=== PATIENT | male | born 1985 | race Caucasian/White ===

== ENCOUNTER → 2016-07-28 | Outpatient (REF) | LOC: M LAB 15:36 | PROVIDERS: ATTEND Nurse Practitioner Adult Health | DX: Z02.1 Encounter for pre-employment examination (principal) ==

== ENCOUNTER 2016-09-09 19:09 | Inpatient (IN) | payer OTHER ==
[~2016-09-09] VITALS: Ht 172.7 cm; Wt 126.6 kg
[2016-09-09 20:13] LABS: MEAN CORPUSCULAR HGB CONC 34.2 g/dl (32.0-36.5); MEAN CORPUSCULAR VOLUME 90.6 fl (80.0-96.0); RED CELL DISTRIBUTION WIDTH 12.4 % (11.5-14.5); WHITE BLOOD COUNT 10.1 K/mm3 (4.0-10.0)
[2016-09-09] MEDS ORDERED: SPIR100T PO (20:20)
[2016-09-09] MEDS ORDERED: iron PO (20:20)
[2016-09-09] MEDS ORDERED: lisinopril PO (20:20)
[2016-09-09] MEDS ORDERED: VIVE0.1D TD (20:20)
[2016-09-09] MEDS ORDERED: MULT1CHW39 PO (20:20)
[2016-09-09] MEDS ORDERED: calcium PO (20:20)
[2016-09-09] MEDS ORDERED: LEVO25TA5 PO (20:20)
[2016-09-09 20:41] LABS: METHADONE URINE NEGATIVE (NEGATIVE)
[2016-09-09 21:13] LABS: ALBUMIN/GLOBULIN RATIO 1.11 (1.00-1.93); ALKALINE PHOSPHATASE 81 U/L (45-117); ALT/SGPT 18 U/L (12-78); ANION GAP 8 MEQ/L (8-16); AST/SGOT 14 U/L (15-37); BILIRUBIN,DIRECT 0.1 MG/DL (0.0-0.2); BILIRUBIN,TOTAL 0.4 MG/DL (0.2-1.0); BLOOD UREA NITROGEN 9 MG/DL (7-18); CALCIUM LEVEL 8.5 MG/DL (8.5-10.1); CARBON DIOXIDE LEVEL 29 MEQ/L (21-32); CHLORIDE LEVEL 102 MEQ/L (98-107); CREATININE FOR GFR 0.77 MG/DL (0.70-1.30); GLOMERULAR FILTRATION RATE > 60.0 (>60); GLUCOSE, FASTING 101 MG/DL (70-105); POTASSIUM SERUM 3.8 MEQ/L (3.5-5.1); SODIUM LEVEL 139 MEQ/L (136-145); TOTAL PROTEIN 7.6 GM/DL (6.4-8.2)
[2016-09-10] MEDS ORDERED: ACETAMINOPHEN TAB 650MG DOSE (2X325MG) PO PRN (07:00)
[2016-09-10] MEDS ORDERED: LORazepam 1 MG TAB PO PRN (07:00)
[2016-09-10] MEDS ORDERED: MAALOX 30 ML SUSP *UDC PO PRN (07:00)
[2016-09-10] MEDS ORDERED: MOM 30ML SUSPENSION UDC PO PRN (07:00)
[2016-09-10] MEDS ORDERED: traZODone 50 MG TAB PO PRN (07:00)
[2016-09-10] MEDS: ESCITALOPRAM OXALATE 10 MG TAB (LEXAPRO) PO SCH (08:31)
[2016-09-10] MEDS ORDERED: CALC600T10 PO (09:38)
[2016-09-10] MEDS ORDERED: FERR325T3 PO (09:38)
[2016-09-10] MEDS ORDERED: VITMTA PO (09:38)
[2016-09-10] MEDS ORDERED: LISI10TA4 PO (09:39)
[2016-09-10 09:47] VITALS: BP 149/101
--- NOTE | 2016-09-10 10:18 | HPEPDOC ---
Medical History and Physical Date of Admission September 10, 2016 at 06:51 History and Physical PCP: Chasity BRINK ATTENDING: Dr. Carlos Mcrae HPI: 30yoM admitted to [facility] for MDD, being medically examined today. No acute medical complaints today. Denies any fevers, chills, weakness, fatigue, BENTLEY, CP, SOB, cough, palpitations, abdominal pain, N/V/D or changes in bowel or bladder habits. PMHx: Depression Anxiety H/O SI Gender Identity Disorder. HT as per Endocrinology- Adele Villeda. . Transitioning male to female. Obesity BMI 42.6 Wt loss 170# with bariatric surgery per pt. HTN. H/O memory loss, managed as per Neurology. hypothyroid AXEL H/O HLD H/O IFG PSHX: gastric bypass 2014 SOCHX: Resides in: lives with mother Marital Status: single Kids: none Employment: unemployed Tobacco use: denies ETOH: denies Illicit Drugs: Denies IV Drug Use: Denies Tattoos done unprofessionally: Denies FAMHX: Mother: Alive, HTN Father: unknown Siblings None Children: none Unexpected deaths due to medical reasons: None. ROS: As noted in HPI, otherwise 11pt ROS of systems reviewed and remarkable only for PE: GEN: 30yoM, appears stated age. Well-nourished, well developed. No acute distress. Alert and oriented x 3. Pleasant, interactive. HEENT: Normocephalic, atraumatic. Pupils are equal, round, and reactive to light. Extraocular movements are intact. No nystagmus appreciated. Sclera are nonicteric. Conjunctiva without injection. Nose midline. Nasal turbinates without bogginess. EACs both patent BL. TMs both visualized and jimenes with good cone of light, no bulging or erythema. No facial asymmetry. Moist mucous membranes. Dentition fair. Pharynx pink and moist, no cobblestoning. Neck supple , trachea midline. No lymphadenopathy or thyromegaly appreciated. CHEST: Regular rate and rhythm, +S1, +S2 LUNGS: Clear to auscultation bilaterally. No wheezes, rales, or rhonchi. Breathing appears symmetric and easy. Patient is speaking in full sentences. No accessory muscle use. ABD: Round, soft, non-tender, non-distended. +Bowel sounds throughout. No rebound or guarding. No costovertebral angle tenderness. EXT: Pulses 2+ bilaterally dorsalis pedis and radial. No lower extremity edema appreciated. SKIN: [employer], dry, warm. Capillary refill <2sec. No rashes. NEURO: Alert and oriented x 3. Cranial nerves III-XII are intact. No focal deficits appreciated. EKG: pending A&P: 30yoM admitted to [facility] for MDD 1. Psych. Plan per Psychiatry. Obtain baseline EKG to assure the safety of psychiatric medications as they can prolong the QT interval. 2. Gender Identity disorder. Following with Endocrine for HT. Continue with outpt regimen. 3. Obesity/H/O Gastric bypass procedure. BMI 42.6. Cont with diet. Cont Ca and Fe supplements as per outpt regimen. 4. Follow up with PCP on discharge. 5. HTN. Continue with Lisinopril 10mg daily. 6. AXEL. Off CPAP since wt loss per pt. 7. HLD. Diet controlled. Lipid profile 03/19 [id number]. 8. IFG. FBS 101. 9. Hypothyroid. Continue with supplement. TSH WNL. 10. Staff member present throughout exam, Teresa FLETCHER. . Vital Signs Vital Signs Date Time Temp Pulse Resp B/P (MAP) Pulse Ox O2 Delivery O2 Flow Rate FiO2 09/10/16 09:16 98.3 96 18 148/88 (108) 97 Room Air Laboratory Data Labs 24H Laboratory Tests 2 09/09/16 19:54: Urine Amphetamines Screen NEGATIVE, Urine Benzodiazepines Screen NEGATIVE, Urine Opiates Screen NEGATIVE, Urine Methadone Screen NEGATIVE, Urine Barbiturates Screen NEGATIVE, Urine Phencyclidine Screen NEGATIVE, Urine Cocaine Metabolite Screen NEGATIVE, Urine Cannabinoids Screen NEGATIVE 09/09/16 20:01: Anion Gap 8, Glomerular Filtration Rate > 60.0, Calcium Level 8.5, Aspartate Amino Transf (AST/SGOT) 14L, Alanine Aminotransferase (ALT/SGPT) 18, Alkaline Phosphatase 81, Total Bilirubin 0.4, Direct Bilirubin 0.1, Total Protein 7.6, Albumin 4.0, Albumin/Globulin Ratio 1.11, Thyroid Stimulating Hormone (TSH) 2.410, Salicylates Level < 1.7L, Acetaminophen Level < 2.0L, Ethyl Alcohol Level < 0.003 CBC/BMP Item Value Date Time Triglycerides Level 77 MG/DL 03/24/16 1448 Cholesterol Level 191 MG/DL 03/24/16 1448 LDL Cholesterol 109.6 MG/DL H 03/24/16 1448 Non-HDL Cholesterol (LDL + VLDL) 125 MG/DL 03/24/16 1448 HDL Cholesterol 66 MG/DL 03/24/16 1448 Cholesterol/HDL Ratio 2.893 03/24/16 1448 Laboratory Tests 09/09/16 20:01 Red Blood Count 5.19, Mean Corpuscular Volume 90.6, Mean Corpuscular Hemoglobin 31.0, Mean Corpuscular Hemoglobin Concent 34.2, Red Cell Distribution Width 12.4 Home Medications Scheduled Calcium (Calcium) 600 Mg Tab, 600 MG PO BID Estradiol (Vivelle-Dot) 0.1 Mg/24 Hr Dis, 2 PATCH TD 2XWK THURSDAY AND THURSDAY Ferrous Sulfate (Ferrous Sulfate) 325 Mg Tab, 325 MG PO DAILY Levothyroxine Sodium (Synthroid) 25 Mcg Tab, 37.5 MCG PO DAILY Lisinopril (Lisinopril) 10 Mg Tab, 10 MG PO DAILY Multivitamins *[facility] STOCKED* (Thera M Plus *[facility] STOCKED*) 1 Tab Tab, 1 TAB PO DAILY Spironolactone (Spironolactone) 100 Mg Tab, 200 MG PO DAILY Allergies Coded Allergies: No Known Allergies (Unverified , 09/09/16) Sherine Penny September 10, 2016 10:18
[2016-09-10] MEDS: SPIRONOLACTONE 50 MG TAB PO SCH (12:42)
[2016-09-10] MEDS: FERROUS SULFATE 325MG TAB PO SCH (12:42)
[2016-09-10] MEDS: MULTIVITAMINS/MINERALS THERAP 1 TAB PO SCH (12:44)
[2016-09-10] MEDS: LISINOPRIL 10 MG TAB PO SCH (12:44)
[2016-09-10] MEDS: LEVOTHYROXINE 0.025 MG TAB (25 MCG) PO SCH (12:45)
[2016-09-10 18:00] VITALS: BP 139/87
[2016-09-11] MEDS: LEVOTHYROXINE 0.025 MG TAB (25 MCG) PO SCH (06:01)
[2016-09-11 06:33] VITALS: BP 130/78
[2016-09-11] MEDS: FERROUS SULFATE 325MG TAB PO SCH (09:20)
[2016-09-11] MEDS: MULTIVITAMINS/MINERALS THERAP 1 TAB PO SCH (09:21)
[2016-09-11] MEDS: ESCITALOPRAM OXALATE 10 MG TAB (LEXAPRO) PO SCH (09:23)
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
[2016-09-11] MEDS: LISINOPRIL 10 MG TAB PO SCH (09:25)
[2016-09-11] MEDS: SPIRONOLACTONE 50 MG TAB PO SCH (09:26)
[2016-09-11 12:38] VITALS: BP 141/95
[2016-09-11 18:00] VITALS: BP 120/63
--- NOTE | 2016-09-11 19:56 | ECGEPIP ---
Stationary ECG Study [facility] Test Date: 2016-09-10 Pat Name: MARGI CAPRENTER Department: Room: [place] [address] Gender: M Leave Specialist: CARY : 1985 Requested By: Sherine Penny Order Number: [id number] Reading MD: Delilah Mcmillan Measurements Intervals [place] Rate: 74 P: 21 MD: 149 QRS: 75 QRSD: 103 T: 43 QT: 400 QTc: 445 Interpretive Statements SINUS RHYTHM NO PRIOR Electronically Signed On 09-11-2016 19:56:25 EDT by Delilah Mcmillan
[2016-09-11] MEDS: ESTRADIOL TD SCH (21:00)
[2016-09-12] MEDS: LEVOTHYROXINE 0.025 MG TAB (25 MCG) PO SCH (06:01)
[2016-09-12 06:12] VITALS: BP 132/67
[2016-09-12] MEDS: FERROUS SULFATE 325MG TAB PO SCH (09:27)
[2016-09-12] MEDS: ESCITALOPRAM OXALATE 10 MG TAB (LEXAPRO) PO SCH (09:27)
[2016-09-12] MEDS: LISINOPRIL 10 MG TAB PO SCH (09:27)
[2016-09-12] MEDS: SPIRONOLACTONE 50 MG TAB PO SCH (09:28)
[2016-09-12] MEDS: MULTIVITAMINS/MINERALS THERAP 1 TAB PO SCH (09:28)
[2016-09-12 18:00] VITALS: BP 134/71
--- NOTE | 2016-09-12 19:05 | MHIPNPDOC ---
[facility] Progress Note Progress Note DATE OF SERVICE: 09/12/16 HISTORY OF THE PRESENT ILLNESS: Patient is a 30-year-old transgender individual who is transitioning from male to female and prefers to be called "Radha," who was brought to [facility] by police after being reported by an online chat member that patient was making statements online of wanting to kill herself by jumping out her [address] apartment window. Fig Washer met with patient today to assess treatment progress on inpatient unit. Patient denies symptoms of anxiety , reports 3/10 depression, denies suicidal and homicidal ideation, denies audiovisual hallucinations, denies urge to engage in self-injurious behavior. Patient states to automobile and property underwriter, "I'm feeling a little better today, my mother visited last night and the visit went well, I feel like she is supportive and that's a big relief." Patient indicates she continues to experience guilt related to not telling her mother that her symptoms of depression were increasing and that she was experiencing suicidal ideation, informs automobile and property underwriter she feels she will be able to communicate her feelings to her mother better in the future. Patient indicates Lexapro is helping to reduce symptoms of anxiety and depression and denies medication side effects. Patient reports improvement in energy level, describes concentration and focus as "okay," and indicates appetite is stable. Patient denies symptoms of physical pain, denies experiencing new episodes of dizziness, and presents with no signs of acute distress at time of interaction. VITALS: See below NEW TEST RESULTS: No new results PAST MEDICAL/SURGICAL HISTORY: Hypothyroidism, obesity with weight loss of 170 pounds post-bariatric surgery in 2014, hypertension, history of memory loss which is managed by neurology, AXEL and was using CPAP, states no longer needs due to weight loss, history of hyperlipidemia, history of IFG, patient is on hormone therapy and is followed by endocrinology, is transitioning from male to female. Patient denies history of seizure or head injury. Labs on admission indicated elevated WBCs and low AST UDS negative 09/11/16 EKG sinus rhythm CURRENT MEDICATIONS: See below MENTAL STATUS EXAMINATION: General appearance: Patient is a 30-year-old transgender female who is pleasant and cooperative, engageable, makes improved eye contact, appears less disheveled today, is dressed in hospital clothing, and ambulates with steady gait, appears stated age. Speech: Is of normal rate, rhythm, low volume, monotone, coherent Thought processes: Linear, logical, goal-directed Thought content: Logical, rational, no tangentiality noted, no paranoia Abstract reasoning and computation: Appears intact Description of associations: Intact Description of abnormal or psychotic thoughts: Patient denies current suicidal or homicidal ideation, denies auditory or visual hallucinations, does not appear to be responding to internal stimuli, does not endorse bizarre or paranoid ideation, denies preoccupation with violence or obsessions Judgment: Limited, some improvement during treatment Insight: Fair, some improvement during treatment ORientation: A and O 3 Recent and remote memory: Appear intact, however, reportedly has a history of memory loss, none noted at time of assessment Attention span and concentration: Adequate Fund of knowledge: Adequate Mood: "I don't know, but I might be on the upswing." Patient appears anxious and depressed, no mood lability noted Affect: Blunted but brightens at times, congruent with mood. DIAGNOSES: Major depressive disorder, recurrent, moderate, gender dysphoria ASSESSMENT: Patient continues to slowly adjust to unit, remains isolative and withdrawn at times, at other times visible, has started attending some groups. Patient was encouraged to participate more in unit programming. One-on-one patient is easily engaged, pleasant and cooperative and presents with no behavior management challenges. Patient continues to take Lexapro which she indicates is helping to reduce symptoms of anxiety and depression and she denies medication side effects. Patient remains aware she has trazodone available to her for sleep and PRN anxiolytic if needed. Patient will remain on vitals QID and fall precautions for now in order to continue to monitor for new episodes of dizziness. Patient denies suicidal and homicidal ideation and verbalizes awareness of how to access supportive services on the unit if needed. Will continue to monitor patient's response to medications, monitor for side effects, and will evaluate patient's safety, resolution of suicidal ideation, and discharge readiness. Patient indicates today that when she is prepared for discharge she will probably return to her home, as opposed to her mother's home, and is interested in participating in outpatient psychotherapy and [facility] services [email or web address]. Patient also participates in online transgender support group and attends a face-to- face transgender support group through [email or web address] which she intends to resume. Patient is aware she will be meeting with [facility] director of housing and energy services on Thursday to initiate outpatient case management services. MANAGEMENT PLAN: Continue Lexapro 20 mg po q am Maintain safety precautions Patient to attend groups and participate in unit programming to develop coping strategies Engage patient in discharge planning process to ensure safe discharge planning when appropriate Patient to follow up with PCM, neurology, and endocrinology upon discharge TIME SPENT: 35 minutes Vital Signs Vital Signs Date Time Temp Pulse Resp B/P (MAP) Pulse Ox O2 Delivery O2 Flow Rate FiO2 09/12/16 09:27 132/67 09/12/16 06:12 99.0 76 20 09/10/16 18:00 Room Air 09/10/16 09:47 100 Current Medications Current Medications Acetaminophen (Tylenol Tab) 650 mg Q6HP PRN PO HEADACHE or DISCOMFORT; Start at 07:00; Stop 10/10/16 at 06:59 Al Hydrox/Mg Hydrox/Simethicone (Mylanta) 30 ml Q4HP PRN PO HEARTBURN/ INDIGESTION; Start 09/10/16 at 07:00; Stop 10/10/16 at 06:59 Escitalopram Oxalate (Lexapro) 20 mg DAILY PO Last administered on 09/12/16 09 :27; Start 09/10/16 at 09:00; Stop 10/10/16 at 08:59 Ferrous Sulfate (Ferrous Sulfate) 325 mg DAILY PO Last administered on 09:27; Start 09/10/16 at 09:00; Stop 10/10/16 at 08:59 Home Med (Med Rec Complete!) ASDIRECTED XX ; Start 09/10/16 at 09:45; Stop 02/17 at 09:45; Status DC Levothyroxine Sodium (Synthroid) 0.0375 mg DAILY@0600 PO Last administered on 06:01; Start 09/10/16 at 06:00; Stop 10/10/16 at 05:59 Lisinopril (Prinivil) 10 mg DAILY PO Last administered on 09/12/16 09:27; Start 09/10/16 at 09:00; Stop 10/10/16 at 08:59 Lorazepam (Ativan) 1 mg TIDP PRN PO Anxiety; Start 09/10/16 at 07:00; Stop at 06:59 Magnesium Hydroxide (Milk Of Magnesia) 30 ml DAILYPRN PRN PO CONSTIPATION; Start 09/10/16 at 07:00; Stop 10/10/16 at 06:59 Miscellaneous (Unresolved Patient Own Med Order) SEE LABEL COMMENTS UNRESOLVED XX ; Start 09/10/16 at 00:01; Stop 09/11/16 at 19:58; Status DC Multivitamins (Theragram-M) 1 tab DAILY PO Last administered on 09/12/16 09:28 ; Start 09/10/16 at 09:00; Stop 10/10/16 at 08:59 Patient Own Medication (Patient'S Own Med) 2 ea MoTh@2100 TD Last administered on 09/11/16 21:00; Start 09/11/16 at 21:00; Stop 10/11/16 at 20:59 Spironolactone (Aldactone) 200 mg DAILY PO Last administered on 09/12/16 09:28 ; Start 09/10/16 at 09:00; Stop 10/10/16 at 08:59 Trazodone HCl (Desyrel) 50 mg QHSP PRN PO INSOMNIA; Start 09/10/16 at 07:00; Stop 10/10/16 at 06:59 Allergies Coded Allergies: No Known Allergies (Unverified , 09/09/16) Khloe Gonsales September 12, 2016 19:05
[2016-09-13] MEDS: LEVOTHYROXINE 0.025 MG TAB (25 MCG) PO SCH (06:40)
[2016-09-13 06:41] VITALS: BP 124/71
[2016-09-13] MEDS: MULTIVITAMINS/MINERALS THERAP 1 TAB PO SCH (09:10)
[2016-09-13] MEDS: SPIRONOLACTONE 50 MG TAB PO SCH (09:10)
[2016-09-13] MEDS: FERROUS SULFATE 325MG TAB PO SCH (09:10)
[2016-09-13] MEDS: ESCITALOPRAM OXALATE 10 MG TAB (LEXAPRO) PO SCH (09:10)
[2016-09-13] MEDS: LISINOPRIL 10 MG TAB PO SCH (09:10)
[2016-09-13 12:00] VITALS: BP 146/88
[2016-09-13 18:00] VITALS: BP 128/65
[2016-09-14] MEDS: LEVOTHYROXINE 0.025 MG TAB (25 MCG) PO SCH (06:11)
[2016-09-14 06:24] VITALS: BP 155/65
[2016-09-14] MEDS: SPIRONOLACTONE 50 MG TAB PO SCH (09:18)
[2016-09-14] MEDS: MULTIVITAMINS/MINERALS THERAP 1 TAB PO SCH (09:18)
[2016-09-14] MEDS: ESCITALOPRAM OXALATE 10 MG TAB (LEXAPRO) PO SCH (09:18)
[2016-09-14] MEDS: LISINOPRIL 10 MG TAB PO SCH (09:19)
[2016-09-14] MEDS: FERROUS SULFATE 325MG TAB PO SCH (09:19)
--- NOTE | 2016-09-14 12:36 | IPN ---
DATE: 09/13/2016 30-year-old transgender patient admitted for depression and suicidal ideation. Patient was planning to jump out of his 10th floor apartment window. SUBJECTIVE: "I am feeling a little better". OBJECTIVE: Patient reports improving. He is in his bed. Has very little interaction with other patients and staff, however, he feels that the treatment is very helpful. Patient denies any side effect from the medication. MENTAL STATUS EXAMINATION: Patient is dressed in [facility]. Patient is cleaned and well groomed. Poor eye contact. Speech is slow and monotone. Mood is depressed and anxious but subjectively improving. Affect is restricted. No delusions or hallucinations. Memory is fair. Patient is fully oriented. Associations are intact. Thinking is logical. Thought content is appropriate. Patient is able to contract for safety. Denies suicidal or homicidal ideation during the interview. Insight and judgment is fair. ASSESSMENT: 1. Depression. 2. Suicidal ideation. PLAN: 1. Continue with Lexapro 20 mg by mouth daily every morning. 2. Continue trazodone as needed for insomnia. 3. Continue medication management, individual and group therapy.
[2016-09-14 18:00] VITALS: BP 126/59
--- NOTE | 2016-09-15 02:35 | IPN ---
DATE OF SERVICE: 09/14/2016 30-year-old transgender patient admitted for depression and suicidal ideation. Patient was planning to jump out a 10th floor apartment window. SUBJECTIVE: "I am feeling better." OBJECTIVE: Patient is improving slowly. Remains in bed. Has very little interaction with other patients and staff. Continued improvement with the current medication and the fact that has been able to discuss his problems with a therapist and family. Patient is denying side effects from the medication. There is no evidence of psychotic symptoms. MENTAL STATUS EXAMINATION: Patient is dressed in [facility]. Is well groomed. Has fair eye contact. Speech is slow and monotone. Mood is depressed and anxious, but improving. Affect is restricted. No delusions or hallucinations. Memory, attention and concentration are fair. Thought content is appropriate. Patient is able to contract for safety and denies suicidal or homicidal ideation during the interview. Insight and judgment is fair. ASSESSMENT: 1. Depression. 2. Suicidal ideation. PLAN: 1. Continue with Lexapro 20 mg by mouth every morning. 2. Continue trazodone as needed for insomnia. 3. Continue medication management, individual and group therapy.
[2016-09-15] MEDS: LEVOTHYROXINE 0.025 MG TAB (25 MCG) PO SCH (06:12)
[2016-09-15 06:30] VITALS: BP 129/77
[2016-09-15] MEDS: ESCITALOPRAM OXALATE 10 MG TAB (LEXAPRO) PO SCH (08:44)
[2016-09-15] MEDS: MULTIVITAMINS/MINERALS THERAP 1 TAB PO SCH (08:44)
[2016-09-15] MEDS: SPIRONOLACTONE 50 MG TAB PO SCH (08:45)
[2016-09-15] MEDS: FERROUS SULFATE 325MG TAB PO SCH (08:45)
[2016-09-15] MEDS: LISINOPRIL 10 MG TAB PO SCH (08:45)
--- NOTE | 2016-09-15 09:05 | MHIPNPDOC ---
[facility] Progress Note Progress Note DATE OF SERVICE: 09/15/16 HISTORY OF THE PRESENT ILLNESS: Patient is a 30-year-old transgender individual who is transitioning from male to female and prefers to be called "Radha," who was brought to [facility] by police after being reported by an online chat member that patient was making statements online of wanting to kill herself by jumping out her 10th floor apartment window. Internal Audit Senior Manager met with patient today to assess treatment progress on inpatient unit. Patient denies symptoms of anxiety , reports 1/10 depression, denies suicidal and homicidal ideation, denies audiovisual hallucinations, denies urge to engage in self-injurious behavior. Patient indicates today she is feeling "much better," indicates her relationship with her mother continues to improve and she feels she has strengthened her support system. Patient indicates Lexapro remains helpful in reducing symptoms of anxiety and depression and denies medication side effects. Patient reports improvement in energy level and concentration and focus, and indicates appetite is stable. Patient denies symptoms of physical pain, denies experiencing new episodes of dizziness, and presents with no signs of acute distress at time of interaction. VITALS: See below NEW TEST RESULTS: No new results PAST MEDICAL/SURGICAL HISTORY: Hypothyroidism, obesity with weight loss of 170 pounds post-bariatric surgery in 2014, hypertension, history of memory loss which is managed by neurology, AXEL and was using CPAP, states no longer needs due to weight loss, history of hyperlipidemia, history of IFG, patient is on hormone therapy and is followed by endocrinology, is transitioning from male to female. Patient denies history of seizure or head injury. Labs on admission indicated elevated WBCs and low AST UDS negative 09/11/16 EKG sinus rhythm CURRENT MEDICATIONS: See below MENTAL STATUS EXAMINATION: General appearance: Patient is a 30-year-old transgender female who is pleasant and cooperative, engageable, makes good eye contact, presents with adequate hygiene, is dressed in hospital clothing, and ambulates with steady gait, appears stated age. Speech: Is of normal rate, rhythm, low volume, monotone, coherent Thought processes: Linear, logical, goal-directed Thought content: Logical, rational, no tangentiality noted, no paranoia Abstract reasoning and computation: Appears intact Description of associations: Intact Description of abnormal or psychotic thoughts: Patient denies current suicidal or homicidal ideation, denies auditory or visual hallucinations, does not appear to be responding to internal stimuli, does not endorse bizarre or paranoid ideation, denies preoccupation with violence or obsessions Judgment: Adequate, has improved during treatment Insight: Adequate, has improved during treatment ORientation: A and O 3 Recent and remote memory: Appear intact, however, reportedly has a history of memory loss, none noted at time of assessment Attention span and concentration: Adequate Fund of knowledge: Adequate Mood: "Much better, I feel positive and stronger." Patient appears less depressed and less anxious, no mood lability noted Affect: Mild constriction, brightens, congruent with mood. DIAGNOSES: Major depressive disorder, recurrent, moderate, gender dysphoria ASSESSMENT: Patient has adjusted to unit, has been more visible and sociable, has been participating in unit programming, notes she feels she has learned useful techniques effective coping mechanisms for managing symptoms and . Patient continues to take Lexapro which she indicates medication is effective in reducing symptoms of anxiety and depression and she denies medication side effects. She has not needed to utilize trazodone or PRN anxiolytic during stay. Patient will remain on vitals QID and fall precautions for now in order to continue to monitor for new episodes of dizziness. Patient denies suicidal and homicidal ideation and verbalizes awareness of how to access supportive services on the unit if needed. Will continue to monitor patient's response to medications, monitor for side effects, and will evaluate patient's safety, and will begin to prepare patient for discharge tomorrow. Patient indicates he plans to discharge to home which is reportedly located moments from her mother' s home, and will participate in outpatient psychotherapy and medication management services through [facility]. Patient also participates in online transgender support group and attends a [id number] transgender support group through [facility] which she intends to resume. Patient is aware she is scheduled to meet with [facility] tax form preparer later today to initiate outpatient case management services. MANAGEMENT PLAN: Continue Lexapro 20 mg po q am Maintain safety precautions Patient to attend groups and participate in unit programming to develop coping strategies Engage patient in discharge planning process to ensure safe discharge planning when appropriate Patient to follow up with PCM, neurology, and endocrinology upon discharge TIME SPENT: 35 minutes Vital Signs Vital Signs Date Time Temp Pulse Resp B/P (MAP) Pulse Ox O2 Delivery O2 Flow Rate FiO2 09/15/16 08:45 129/77 09/15/16 06:30 99.0 76 18 Room Air 09/10/16 09:47 100 Current Medications Current Medications Acetaminophen (Tylenol Tab) 650 mg Q6HP PRN PO HEADACHE or DISCOMFORT; Start at 07:00; Stop 10/10/16 at 06:59 Al Hydrox/Mg Hydrox/Simethicone (Mylanta) 30 ml Q4HP PRN PO HEARTBURN/ INDIGESTION; Start 09/10/16 at 07:00; Stop 10/10/16 at 06:59 Escitalopram Oxalate (Lexapro) 20 mg DAILY PO Last administered on 09/15/16 08 :44; Start 09/10/16 at 09:00; Stop 10/10/16 at 08:59 Ferrous Sulfate (Ferrous Sulfate) 325 mg DAILY PO Last administered on 08:45; Start 09/10/16 at 09:00; Stop 10/10/16 at 08:59 Home Med (Med Rec Complete!) ASDIRECTED XX ; Start 09/10/16 at 09:45; Stop 02/17 at 09:45; Status DC Levothyroxine Sodium (Synthroid) 0.0375 mg DAILY@0600 PO Last administered on 06:12; Start 09/10/16 at 06:00; Stop 10/10/16 at 05:59 Lisinopril (Prinivil) 10 mg DAILY PO Last administered on 09/15/16 08:45; Start 09/10/16 at 09:00; Stop 10/10/16 at 08:59 Lorazepam (Ativan) 1 mg TIDP PRN PO Anxiety; Start 09/10/16 at 07:00; Stop at 06:59 Magnesium Hydroxide (Milk Of Magnesia) 30 ml DAILYPRN PRN PO CONSTIPATION; Start 09/10/16 at 07:00; Stop 10/10/16 at 06:59 Miscellaneous (Unresolved Patient Own Med Order) SEE LABEL COMMENTS UNRESOLVED XX ; Start 09/10/16 at 00:01; Stop 09/11/16 at 19:58; Status DC Multivitamins (Theragram-M) 1 tab DAILY PO Last administered on 09/15/16 08:44 ; Start 09/10/16 at 09:00; Stop 10/10/16 at 08:59 Patient Own Medication (Patient'S Own Med) 2 ea MoTh@2100 TD Last administered on 09/11/16 21:00; Start 09/11/16 at 21:00; Stop 10/11/16 at 20:59 Spironolactone (Aldactone) 200 mg DAILY PO Last administered on 09/15/16 08:45 ; Start 09/10/16 at 09:00; Stop 10/10/16 at 08:59 Trazodone HCl (Desyrel) 50 mg QHSP PRN PO INSOMNIA; Start 09/10/16 at 07:00; Stop 10/10/16 at 06:59 Allergies Coded Allergies: No Known Allergies (Unverified , 09/09/16) Khloe Gonsales September 15, 2016 09:05
[2016-09-15 12:29] VITALS: BP 124/80
[2016-09-15 18:00] VITALS: BP 124/82
[2016-09-15] MEDS: ESTRADIOL TD SCH (21:32)
[2016-09-16] MEDS ORDERED: LEVOTHYROXINE 0.0375MG (37.5MCG) PER 1/2 TABLET PO SCH (06:00)
[2016-09-16 06:21] VITALS: BP 119/71
[2016-09-16 09:37] VITALS: BP 154/84
[2016-09-16] MEDS: MULTIVITAMINS/MINERALS THERAP 1 TAB PO SCH (09:37)
[2016-09-16] MEDS: ESCITALOPRAM OXALATE 10 MG TAB (LEXAPRO) PO SCH (09:37)
[2016-09-16] MEDS: LISINOPRIL 10 MG TAB PO SCH (09:37)
[2016-09-16] MEDS: FERROUS SULFATE 325MG TAB PO SCH (09:37)
[2016-09-16] MEDS: SPIRONOLACTONE 50 MG TAB PO SCH (09:37)
[2016-09-16] MEDS ORDERED: ESCI10TA2 PO (12:29)
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
[2016-09-19] MEDS ORDERED: LEXA1TAB2 PO (10:39)
== END 2016-09-16 13:40 | disposition home or self-care (01) | DRG 751 ==
LOC: M ED 20:28 → M ED INP 09-10 06:51 → M PSY 09-10 09:33
PROVIDERS: ADMIT Psychiatry & Neurology Psychiatry; ATTEND Psychiatry & Neurology Psychiatry
DX: F33.1 Major depressive disorder, recurrent, moderate (principal); F64.0 Transsexualism; E03.9 Hypothyroidism, unspecified; Z79.899 Other long term (current) drug therapy; G47.33 Obstructive sleep apnea (adult) (pediatric); I10 Essential (primary) hypertension; E66.9 Obesity, unspecified; E78.5 Hyperlipidemia, unspecified

== ENCOUNTER → 2016-09-24 | Outpatient (CLI) | payer OTHER ==
[~2016-09-24] MED LIST: CALC600T10 PO; ESCI10TA2 PO; FERR325T3 PO; LEVO25TA5 PO; LEXA1TAB2 PO; LISI10TA4 PO; MULT1CHW39 PO; SPIR100T PO; VITMTA PO; VIVE0.1D TD; calcium PO; iron PO; lisinopril PO
[2016-09-24 18:48] LABS: ALBUMIN 3.3 GM/DL (3.2-5.2); ALKALINE PHOSPHATASE 64 U/L (45-117); ALT/SGPT 21 U/L (12-78); ANION GAP 6 MEQ/L (8-16); AST/SGOT 14 U/L (15-37); BILIRUBIN,TOTAL 0.3 MG/DL (0.2-1.0); BLOOD UREA NITROGEN 8 MG/DL (7-18); CALCIUM LEVEL 8.4 MG/DL (8.5-10.1); CARBON DIOXIDE LEVEL 28 MEQ/L (21-32); CHLORIDE LEVEL 106 MEQ/L (98-107); CREATININE FOR GFR 0.61 MG/DL (0.70-1.30); GLOMERULAR FILTRATION RATE > 60.0 (>60); GLUCOSE, FASTING 78 MG/DL (70-105); POTASSIUM SERUM 4.2 MEQ/L (3.5-5.1); SODIUM LEVEL 140 MEQ/L (136-145); TOTAL PROTEIN 6.3 GM/DL (6.4-8.2)
[2016-09-24 18:56] LABS: ESTRADIOL 42.7 PG/ML (<39.8)
== END ==
LOC: M LRY 13:16
PROVIDERS: ATTEND Internal Medicine Endocrinology, Diabetes & Metabolism
DX: F64.0 Transsexualism (principal)

== ENCOUNTER → 2017-02-17 | Outpatient (CLI) | payer OTHER ==
[~2017-02-17] MED LIST changes: -CALC600T10 PO; +CALC600T31 PO
[2017-02-17 17:14] LABS: BASO % 0.3 % (0.0-1.0); EOS # 0.1 10^3/uL (0.0-0.50); EOS % 0.8 % (0.0-3.0); IMMATURE GRANULOCYTE % 0.5 % (0-0); LYMPH # 1.7 10^3/uL (1.5-4.5); LYMPH % 27.1 % (24.0-44.0); MEAN CORPUSCULAR HEMOGLOBIN 30.1 pg (27.0-33.0); MEAN CORPUSCULAR HGB CONC 33.8 g/dl (32.0-36.5); MONO # 0.4 10^3/uL (0.0-0.8); MONO % 6.2 % (0.0-5.0); NEUTROPHILS # 4.1 10^3/uL (1.8-7.7); NEUTROPHILS % 65.1 % (36.0-66.0); PLATELET COUNT, AUTOMATED 325 10^3/uL (150-450); RED CELL DISTRIBUTION WIDTH 12.6 % (11.5-14.5); WHITE BLOOD COUNT 6.3 10^3/uL (4.0-10.0)
[2017-02-17 19:13] LABS: ALBUMIN 3.5 GM/DL (3.2-5.2); ALBUMIN/GLOBULIN RATIO 1.09 (1.00-1.93); ALKALINE PHOSPHATASE 87 U/L (45-117); ALT/SGPT 18 U/L (12-78); ANION GAP 6 MEQ/L (8-16); AST/SGOT 13 U/L (15-37); BILIRUBIN,TOTAL 0.3 MG/DL (0.2-1.0); BLOOD UREA NITROGEN 8 MG/DL (7-18); CALCIUM LEVEL 8.5 MG/DL (8.5-10.1); CARBON DIOXIDE LEVEL 27 MEQ/L (21-32); CHLORIDE LEVEL 107 MEQ/L (98-107); CREATININE FOR GFR 0.78 MG/DL (0.70-1.30); FERRITIN 72 NG/ML (26-388); GLOMERULAR FILTRATION RATE > 60.0 (>60); GLUCOSE, FASTING 82 MG/DL (70-105); PHOSPHORUS LEVEL 2.6 MG/DL (2.5-4.9); POTASSIUM SERUM 3.9 MEQ/L (3.5-5.1); SODIUM LEVEL 140 MEQ/L (136-145); TOTAL PROTEIN 6.7 GM/DL (6.4-8.2); VITAMIN B12 LEVEL 935 PG/ML (247-911)
[2017-02-20 12:43] LABS: PRETREATED FOLATE FOR RBCFOL 11.5 NG/ML
== END ==
LOC: M LRY 11:36
PROVIDERS: ATTEND Surgery
DX: K91.2 Postsurgical malabsorption, not elsewhere classified (principal)

== ENCOUNTER → 2018-03-12 | Outpatient (REF) | payer OTHER ==
[2018-03-12 12:22] LABS: HEMATOCRIT 41.3 % (42.0-52.0); HEMOGLOBIN 13.6 g/dl (13.5-17.5); MEAN CORPUSCULAR HEMOGLOBIN 28.5 pg (27.0-33.0); MEAN CORPUSCULAR HGB CONC 32.9 g/dl (32.0-36.5); MEAN CORPUSCULAR VOLUME 86.4 fl (80.0-96.0); PLATELET COUNT, AUTOMATED 400 10^3/uL (150-450); RED BLOOD COUNT 4.78 10^6/uL (4.30-6.10); WHITE BLOOD COUNT 11.3 10^3/uL (4.0-10.0)
[2018-03-12 12:51] LABS: MALB URINE SIEMENS 16.2 MG/L; MAU/CREAT RATIO 5.6 MCG/MG (0.0-30.0)
[2018-03-12 13:03] LABS: ALBUMIN 3.2 GM/DL (3.2-5.2); ALBUMIN/GLOBULIN RATIO 0.94 (1.00-1.93); ALKALINE PHOSPHATASE 73 U/L (45-117); ALT/SGPT 17 U/L (12-78); ANION GAP 9 MEQ/L (8-16); AST/SGOT 12 U/L (7-37); BILIRUBIN,TOTAL 0.4 MG/DL (0.2-1.0); BLOOD UREA NITROGEN 9 MG/DL (7-18); CALCIUM LEVEL 8.6 MG/DL (8.5-10.1); CARBON DIOXIDE LEVEL 25 MEQ/L (21-32); CHLORIDE LEVEL 105 MEQ/L (98-107); CHOLESTEROL LEVEL 198 MG/DL (<200); CHOLESTEROL RISK RATIO 3.882 (<5); CREATININE FOR GFR 0.65 MG/DL (0.70-1.30); FERRITIN 44 NG/ML (26-388); FREE T4 0.86 NG/DL (0.76-1.46); GLOMERULAR FILTRATION RATE > 60.0 (>60); GLUCOSE, FASTING 98 MG/DL (70-100); HDL CHOLESTEROL 51 MG/DL (>40); IRON (FE) 55 UG/DL (65-175); LDL CHOLESTEROL 125 MG/DL (<100); NON-HDL-C 147 MG/DL; PERCENT SATURATION 18.3 % (19.7-50.0); POTASSIUM SERUM 3.7 MEQ/L (3.5-5.1); SODIUM LEVEL 139 MEQ/L (136-145); TOTAL IRON BINDING CAPACITY 300 UG/DL (250-450); TOTAL PROTEIN 6.6 GM/DL (6.4-8.2); TRIGLYCERIDES LEVEL 108 MG/DL (<150)
[2018-03-12 14:20] LABS: VITAMIN B12 LEVEL 828 PG/ML (247-911)
[2018-03-12 14:21] LABS: FOLATE 14.9 NG/ML (>5.4)
[2018-03-12 15:19] LABS: ESTIMATED AVERAGE GLUCOSE 114 MG/DL (60-110); HEMOGLOBIN A1c 5.6 %
== END ==
LOC: M SFHCPLAZ 09:50
DX: I10 Essential (primary) hypertension (principal); Z98.84 Bariatric surgery status; E03.9 Hypothyroidism, unspecified; R73.01 Impaired fasting glucose; E78.49 Other hyperlipidemia
CPT/HCPCS: 82746

== ENCOUNTER → 2018-06-03 | Outpatient (REF) | payer OTHER ==
[~2018-06-03] MED LIST changes: -SPIR100T PO; +SPIR100T3 PO
[2018-06-03 16:06] LABS: HEMATOCRIT 44.2 % (42.0-52.0); HEMOGLOBIN 14.7 g/dl (13.5-17.5); MEAN CORPUSCULAR HEMOGLOBIN 28.4 pg (27.0-33.0); MEAN CORPUSCULAR HGB CONC 33.3 g/dl (32.0-36.5); MEAN CORPUSCULAR VOLUME 85.5 fl (80.0-96.0); PLATELET COUNT, AUTOMATED 399 10^3/uL (150-450); RED BLOOD COUNT 5.17 10^6/uL (4.30-6.10); WHITE BLOOD COUNT 8.8 10^3/uL (4.0-10.0)
[2018-06-03 16:16] LABS: FREE T4 0.94 NG/DL (0.76-1.46); PERCENT SATURATION 25.9 % (19.7-50.0); THYROID STIMULATING HORMONE 3.16 uIU/ML (0.358-3.740)
== END ==
LOC: M SFHCPLAZ 13:55
PROVIDERS: ATTEND Physician Assistant
DX: D50.9 Iron deficiency anemia, unspecified (principal); E03.9 Hypothyroidism, unspecified

== ENCOUNTER → 2019-03-03 | Outpatient (REF) | payer OTHER ==
[~2019-03-03] MED LIST changes: -MULT1CHW39 PO; +MULT200T7 PO
[2019-03-03 16:10] LABS: ALBUMIN 3.1 GM/DL (3.2-5.2); ALT/SGPT 20 U/L (12-78); BILIRUBIN,TOTAL 0.5 MG/DL (0.2-1.0); BLOOD UREA NITROGEN 7 MG/DL (7-18); CALCIUM LEVEL 8.4 MG/DL (8.5-10.1); CARBON DIOXIDE LEVEL 26 MEQ/L (21-32); CHLORIDE LEVEL 107 MEQ/L (98-107); CHOLESTEROL LEVEL 196 MG/DL (<200); CHOLESTEROL RISK RATIO 3.769 (<5); CREATININE FOR GFR 0.75 MG/DL (0.70-1.30); GLOMERULAR FILTRATION RATE > 60.0 (>60); GLUCOSE, FASTING 78 MG/DL (70-100); HDL CHOLESTEROL 52 MG/DL (>40); LDL CHOLESTEROL 126 MG/DL (<100); NON-HDL-C 144 MG/DL; POTASSIUM SERUM 3.8 MEQ/L (3.5-5.1); SODIUM LEVEL 141 MEQ/L (136-145); TOTAL PROTEIN 6.8 GM/DL (6.4-8.2); TRIGLYCERIDES LEVEL 89 MG/DL (<150)
[2019-03-03 16:18] LABS: LUTEINIZING HORMONE 1.4 mIU/mL (1.5-9.3)
[2019-03-03 16:19] LABS: ESTRADIOL 160.7 PG/ML (<39.8)
[2019-03-05 14:58] LABS: TESTOSTERONE FREE (DIRECT) 3.1 pg/mL (8.7-25.1)
== END ==
LOC: M LABDRAWP 13:54
PROVIDERS: ATTEND Internal Medicine Endocrinology, Diabetes & Metabolism
DX: F64.0 Transsexualism (principal)

== ENCOUNTER → 2019-03-03 | Outpatient (REF) | payer OTHER ==
[2019-03-03 15:40] LABS: BASO % 0.2 % (0.0-1.0); EOS # 0.1 10^3/uL (0.0-0.5); EOS % 0.9 % (0.0-3.0); HEMATOCRIT 42.4 % (42.0-52.0); HEMOGLOBIN 13.8 g/dl (13.5-17.5); LYMPH % 22.9 % (24.0-44.0); MEAN CORPUSCULAR HEMOGLOBIN 28.1 pg (27.0-33.0); MEAN CORPUSCULAR HGB CONC 32.5 g/dl (32.0-36.5); MEAN CORPUSCULAR VOLUME 86.4 fl (80.0-96.0); MONO # 0.5 10^3/uL (0.0-0.8); MONO % 5.3 % (0.0-5.0); NEUTROPHILS # 6.3 10^3/uL (1.5-8.5); NEUTROPHILS % 70.4 % (36.0-66.0); PLATELET COUNT, AUTOMATED 420 10^3/uL (150-450); RED BLOOD COUNT 4.91 10^6/uL (4.30-6.10); WHITE BLOOD COUNT 8.9 10^3/uL (4.0-10.0)
[2019-03-03 15:56] LABS: HEMOGLOBIN A1c 5.7 %
[2019-03-03 16:18] LABS: ALBUMIN 3.1 GM/DL (3.2-5.2); ALT/SGPT 22 U/L (12-78); BILIRUBIN,TOTAL 0.5 MG/DL (0.2-1.0); BLOOD UREA NITROGEN 6 MG/DL (7-18); CALCIUM LEVEL 8.2 MG/DL (8.5-10.1); CARBON DIOXIDE LEVEL 27 MEQ/L (21-32); CHLORIDE LEVEL 105 MEQ/L (98-107); CHOLESTEROL LEVEL 188 MG/DL (<200); CHOLESTEROL RISK RATIO 3.916 (<5); CREATININE FOR GFR 0.76 MG/DL (0.70-1.30); GLOMERULAR FILTRATION RATE > 60.0 (>60); GLUCOSE, FASTING 78 MG/DL (70-100); HDL CHOLESTEROL 48 MG/DL (>40); LDL CHOLESTEROL 122 MG/DL (<100); NON-HDL-C 140 MG/DL; POTASSIUM SERUM 3.8 MEQ/L (3.5-5.1); SODIUM LEVEL 140 MEQ/L (136-145); TOTAL 25(OH) VITAMIN D 15.4 NG/ML (30.0-100.0); TOTAL PROTEIN 6.5 GM/DL (6.4-8.2); TRIGLYCERIDES LEVEL 88 MG/DL (<150)
== END ==
LOC: M LABDRAWP 13:58
PROVIDERS: ATTEND Nurse Practitioner Psychiatric/Mental Health
DX: F34.1 Dysthymic disorder (principal)

== ENCOUNTER → 2019-03-03 | Outpatient (REF) | payer OTHER ==
[2019-03-03 15:42] LABS: HEMOGLOBIN 13.8 g/dl (13.5-17.5); MEAN CORPUSCULAR HEMOGLOBIN 27.8 pg (27.0-33.0); MEAN CORPUSCULAR HGB CONC 32.1 g/dl (32.0-36.5); MEAN CORPUSCULAR VOLUME 86.5 fl (80.0-96.0); PLATELET COUNT, AUTOMATED 427 10^3/uL (150-450); RED BLOOD COUNT 4.97 10^6/uL (4.30-6.10); WHITE BLOOD COUNT 8.9 10^3/uL (4.0-10.0)
[2019-03-03 16:16] LABS: ALBUMIN 3.2 GM/DL (3.2-5.2); ALT/SGPT 20 U/L (12-78); BILIRUBIN,TOTAL 0.5 MG/DL (0.2-1.0); BLOOD UREA NITROGEN 7 MG/DL (7-18); CALCIUM LEVEL 8.7 MG/DL (8.5-10.1); CARBON DIOXIDE LEVEL 26 MEQ/L (21-32); CHLORIDE LEVEL 107 MEQ/L (98-107); CHOLESTEROL LEVEL 202 MG/DL (<200); CHOLESTEROL RISK RATIO 3.884 (<5); CREATININE FOR GFR 0.73 MG/DL (0.70-1.30); GLOMERULAR FILTRATION RATE > 60.0 (>60); GLUCOSE, FASTING 79 MG/DL (70-100); HDL CHOLESTEROL 52 MG/DL (>40); LDL CHOLESTEROL 132 MG/DL (<100); NON-HDL-C 150 MG/DL; POTASSIUM SERUM 3.8 MEQ/L (3.5-5.1); SODIUM LEVEL 140 MEQ/L (136-145); TOTAL PROTEIN 6.8 GM/DL (6.4-8.2); TRIGLYCERIDES LEVEL 88 MG/DL (<150)
[2019-03-03 16:17] LABS: HEMOGLOBIN A1c 5.7 %
[2019-03-03 16:25] LABS: TOTAL 25(OH) VITAMIN D 15.8 NG/ML (30.0-100.0)
== END ==
LOC: M SFHCPLAZ 13:44
PROVIDERS: ATTEND Nurse Practitioner Family
DX: E03.9 Hypothyroidism, unspecified (principal); I10 Essential (primary) hypertension; R73.01 Impaired fasting glucose; E66.01 Morbid (severe) obesity due to excess calories; D50.9 Iron deficiency anemia, unspecified; E78.2 Mixed hyperlipidemia; F41.8 Other specified anxiety disorders

== ENCOUNTER → 2020-02-23 | Outpatient (REF) | payer OTHER ==
[2020-02-23 14:09] LABS: HEMOGLOBIN 13.9 g/dl (13.5-17.5); MEAN CORPUSCULAR HEMOGLOBIN 27.4 pg (27.0-33.0); MEAN CORPUSCULAR HGB CONC 31.6 g/dl (32.0-36.5); MEAN CORPUSCULAR VOLUME 86.6 fl (80.0-96.0); PLATELET COUNT, AUTOMATED 415 10^3/uL (150-450); RED BLOOD COUNT 5.08 10^6/uL (4.30-6.10)
[2020-02-23 14:32] LABS: HEMOGLOBIN A1c 5.7 %
[2020-02-23 14:42] LABS: ALT/SGPT 17 U/L (12-78); BLOOD UREA NITROGEN 8 MG/DL (7-18); CALCIUM LEVEL 8.4 MG/DL (8.5-10.1); CARBON DIOXIDE LEVEL 29 MEQ/L (21-32); CHLORIDE LEVEL 106 MEQ/L (98-107); CREATININE FOR GFR 0.75 MG/DL (0.70-1.30); GLOMERULAR FILTRATION RATE > 60.0 (>60); GLUCOSE, FASTING 90 MG/DL (70-100); PHOSPHORUS LEVEL 2.9 MG/DL (2.5-4.9); POTASSIUM SERUM 3.6 MEQ/L (3.5-5.1); SODIUM LEVEL 139 MEQ/L (136-145)
[2020-02-23 14:43] LABS: ALBUMIN 3.3 GM/DL (3.2-5.2); BILIRUBIN,TOTAL 0.6 MG/DL (0.2-1.0); CHOLESTEROL LEVEL 178 MG/DL (<200); CHOLESTEROL RISK RATIO 3.869 (<5); FERRITIN 48 NG/ML (26-388); HDL CHOLESTEROL 46 MG/DL (>40); IRON (FE) 63 UG/DL (65-175); LDL CHOLESTEROL 116 MG/DL (<100); NON-HDL-C 132 MG/DL; PERCENT SATURATION 21.4 % (19.7-50.0); TOTAL IRON BINDING CAPACITY 295 UG/DL (250-450); TOTAL PROTEIN 6.6 GM/DL (6.4-8.2); TRIGLYCERIDES LEVEL 78 MG/DL (<150)
[2020-02-23 14:46] LABS: VITAMIN B12 LEVEL 307 PG/ML
[2020-03-02 07:07] LABS: VITAMIN A, RETINOL LEVEL 25.6 ug/dL (18.9-57.3); VITAMIN B1 LEVEL WHOLE BLOOD 93.3 nmol/L (66.5-200.0)
== END ==
LOC: M PLALAB 09:19
PROVIDERS: ATTEND Family Medicine
DX: K91.2 Postsurgical malabsorption, not elsewhere classified (principal); D50.9 Iron deficiency anemia, unspecified; I10 Essential (primary) hypertension; R73.01 Impaired fasting glucose; E78.2 Mixed hyperlipidemia; E03.9 Hypothyroidism, unspecified; E55.9 Vitamin D deficiency, unspecified; Z98.84 Bariatric surgery status

== ENCOUNTER → 2021-10-01 | Outpatient (CLI) | payer OTHER ==
[~2021-10-01] MED LIST changes: +ESCI10TA16 PO; -ESCI10TA2 PO; +LISI10TA22 PO; -LISI10TA4 PO
[2021-10-01 14:10] LABS: HEMATOCRIT 44.4 % (42.0-52.0); HEMOGLOBIN 14.7 g/dl (13.5-17.5); MEAN CORPUSCULAR HEMOGLOBIN 28.6 pg (27.0-33.0); MEAN CORPUSCULAR HGB CONC 33.1 g/dl (32.0-36.5); MEAN CORPUSCULAR VOLUME 86.4 fl (80.0-96.0); PLATELET COUNT, AUTOMATED 347 10^3/uL (150-450); RED BLOOD COUNT 5.14 10^6/uL (4.30-6.10); WHITE BLOOD COUNT 7.1 10^3/uL (4.0-10.0)
[2021-10-01 14:18] LABS: ALBUMIN 3.4 GM/DL (3.2-5.2); ALT/SGPT 17 U/L (12-78); BILIRUBIN,TOTAL 0.5 MG/DL (0.2-1.0); BLOOD UREA NITROGEN 9 MG/DL (7-18); CALCIUM LEVEL 8.9 MG/DL (8.5-10.1); CARBON DIOXIDE LEVEL 28 MEQ/L (21-32); CHLORIDE LEVEL 108 MEQ/L (98-107); CHOLESTEROL LEVEL 202 MG/DL (<200); CHOLESTEROL RISK RATIO 4.208 (<5); CREATININE FOR GFR 0.83 MG/DL (0.70-1.30); FERRITIN 30 NG/ML (26-388); GLOMERULAR FILTRATION RATE > 60.0 (>60); GLUCOSE, FASTING 86 MG/DL (70-100); HDL CHOLESTEROL 48 MG/DL (>40); IRON (FE) 57 UG/DL (65-175); LDL CHOLESTEROL 140 MG/DL (<100); MAGNESIUM LEVEL 2.2 MG/DL (1.8-2.4); NON-HDL-C 154 MG/DL; PERCENT SATURATION 18.5 % (19.7-50.0); PHOSPHORUS LEVEL 3.1 MG/DL (2.5-4.9); SODIUM LEVEL 142 MEQ/L (136-145); TOTAL IRON BINDING CAPACITY 308 UG/DL (250-450); TOTAL PROTEIN 6.5 GM/DL (6.4-8.2); TRIGLYCERIDES LEVEL 70 MG/DL (<150)
[2021-10-01 14:23] LABS: HEMATOCRIT 44.4 % (42.0-52.0)
[2021-10-01 14:25] LABS: HEMOGLOBIN A1c 5.5 %
[2021-10-01 15:01] LABS: TOTAL 25(OH) VITAMIN D 10.1 NG/ML (30.0-100.0); VITAMIN B12 LEVEL 480 PG/ML (247-911)
== END ==
LOC: M PLALAB 10:34
PROVIDERS: ATTEND Family Medicine
DX: I10 Essential (primary) hypertension (principal); E03.9 Hypothyroidism, unspecified; K91.2 Postsurgical malabsorption, not elsewhere classified; D50.9 Iron deficiency anemia, unspecified; R73.01 Impaired fasting glucose; E55.9 Vitamin D deficiency, unspecified; E78.2 Mixed hyperlipidemia

== ENCOUNTER → 2021-12-24 | Outpatient (CLI) | payer OTHER ==
[2021-12-24 16:09] LABS: FREE T4 1.01 NG/DL (0.76-1.46); THYROID STIMULATING HORMONE 2.11 uIU/ML (0.358-3.740)
== END ==
LOC: M PLALAB 14:22
PROVIDERS: ATTEND Physician Assistant
DX: E03.9 Hypothyroidism, unspecified (principal)

== ENCOUNTER → 2021-12-24 | Outpatient (CLI) | payer OTHER ==
[2021-12-24 15:31] LABS: HEMOGLOBIN 15.2 g/dl (13.5-17.5); MEAN CORPUSCULAR HEMOGLOBIN 28.8 pg (27.0-33.0); MEAN CORPUSCULAR HGB CONC 33.8 g/dl (32.0-36.5); MEAN CORPUSCULAR VOLUME 85.2 fl (80.0-96.0); PLATELET COUNT, AUTOMATED 355 10^3/uL (150-450); RED BLOOD COUNT 5.28 10^6/uL (4.30-6.10); WHITE BLOOD COUNT 7.1 10^3/uL (4.0-10.0)
[2021-12-24 16:00] LABS: ALBUMIN 3.2 GM/DL (3.2-5.2); ALT/SGPT 20 U/L (12-78); BILIRUBIN,TOTAL 0.6 MG/DL (0.2-1.0); BLOOD UREA NITROGEN 8 MG/DL (7-18); CALCIUM LEVEL 8.7 MG/DL (8.5-10.1); CARBON DIOXIDE LEVEL 26 MEQ/L (21-32); CHLORIDE LEVEL 108 MEQ/L (98-107); CHOLESTEROL LEVEL 202 MG/DL (<200); CHOLESTEROL RISK RATIO 4.297 (<5); CREATININE FOR GFR 0.74 MG/DL (0.70-1.30); GLOMERULAR FILTRATION RATE > 60.0 (>60); GLUCOSE, FASTING 88 MG/DL (70-100); HDL CHOLESTEROL 47 MG/DL (>40); LDL CHOLESTEROL 134 MG/DL (<100); NON-HDL-C 155 MG/DL; SODIUM LEVEL 138 MEQ/L (136-145); TOTAL PROTEIN 6.2 GM/DL (6.4-8.2); TRIGLYCERIDES LEVEL 103 MG/DL (<150)
[2021-12-24 17:03] LABS: ESTRADIOL 95.2 PG/ML (<39.8)
== END ==
LOC: M PLALAB 14:19
PROVIDERS: ATTEND Internal Medicine Endocrinology, Diabetes & Metabolism
DX: F64.0 Transsexualism (principal)

== ENCOUNTER 2022-07-21 11:51 | Emergency (ER) | payer OTHER ==
[~2022-07-21] VITALS: Ht 172.7 cm; Wt 163.0 kg
[2022-07-21] MEDS ORDERED: LEVO50TA5 (12:08)
[2022-07-21] MEDS ORDERED: REXU1TAB5 (12:08)
[2022-07-21] MEDS ORDERED: ERGO500029 (12:08)
[2022-07-21] MEDS ORDERED: FERR32TA (12:08)
[2022-07-21] MEDS ORDERED: PERCOCET 5MG/325MG TAB PO ONE (14:30)
[2022-07-21] MEDS ORDERED: PERC5TAB12 PO ×2 (16:14)
[2022-07-21 16:18] VITALS: BP 144/93
== END 2022-07-21 16:32 | disposition home or self-care (01) ==
LOC: M ED 11:51
DX: S52.501A Unspecified fracture of the lower end of right radius, initial encounter for closed fracture (principal); S52.614A Nondisplaced fracture of right ulna styloid process, initial encounter for closed fracture; S83.92XA Sprain of unspecified site of left knee, initial encounter; M25.721 Osteophyte, right elbow; W00.0XXA Fall on same level due to ice and snow, initial encounter; Y92.410 Unspecified street and highway as the place of occurrence of the external cause; F32.9 Major depressive disorder, single episode, unspecified; E03.9 Hypothyroidism, unspecified; I10 Essential (primary) hypertension; Z98.84 Bariatric surgery status; Z79.890 Hormone replacement therapy; Z79.899 Other long term (current) drug therapy

== ENCOUNTER → 2022-07-28 | Outpatient (CLI) | payer OTHER ==
[~2022-07-28] MED LIST changes: +ERGO500029; +FERR32TA; +LEVO50TA5; +PERC5TAB12 PO; +REXU1TAB5
== END ==
LOC: M LABSMTC 10:11
PROVIDERS: ATTEND Anesthesiology
DX: Z01.812 Encounter for preprocedural laboratory examination (principal); Z20.822 Contact with and (suspected) exposure to COVID-19

== ENCOUNTER 2022-07-30 07:17 | Day surgery (SDC) | payer OTHER ==
[~2022-07-30] VITALS: Ht 170.2 cm; Wt 164.2 kg
[2022-07-30] MEDS ORDERED: fentaNYL 100 MCG/2 ML INJECTION IV PRN (08:00)
[2022-07-30] MEDS ORDERED: ROPIvacaine 0.5% 30ML VIAL PN ONE (08:00)
[2022-07-30] MEDS ORDERED: LIDOCAINE 1% SDV 5ML VIAL PN ONE (08:00)
[2022-07-30] MEDS ORDERED: ceFAZolin SOD 1 GM in D5W MINI-BAG PLUS 50 ML IV ONE (08:15)
[2022-07-30] MEDS ORDERED: ceFAZolin SOD 2 GM in IV 1 EA IV ONE (08:15)
[2022-07-30] MEDS: MIDAZOLAM INJ 2MG/2ML VIAL IV PRN ×2 (08:23→08:27)
[2022-07-30] MEDS ORDERED: BACITRACIN OINTMENT 30GM TUBE As Ordered ONE (08:34)
[2022-07-30] MEDS ORDERED: BUPIVACAINE HCL 0.25% 30ML VIAL As Ordered ONE (08:34)
[2022-07-30 08:44] LABS: BLOOD UREA NITROGEN 9 MG/DL (9-23); CALCIUM LEVEL 8.5 MG/DL (8.5-10.1); CARBON DIOXIDE LEVEL 29 MMOL/L (20-31); CHLORIDE LEVEL 104 MMOL/L (98-107); CREATININE FOR GFR 0.76 MG/DL (0.70-1.30); GLOMERULAR FILTRATION RATE > 60.0 (>60); GLUCOSE, FASTING 82 MG/DL (60-100); POTASSIUM SERUM 3.9 MMOL/L (3.5-5.1); SODIUM LEVEL 138 MMOL/L (136-145)
[2022-07-30] MEDS ORDERED: ROCURONIUM BROMIDE 50MG/5ML VIAL As Ordered ONE (08:58)
[2022-07-30] MEDS ORDERED: ceFAZolin 1GM VIAL As Ordered ONE (09:01)
[2022-07-30] MEDS ORDERED: ceFAZolin 2 GM/D5W 50 ML IV BAG As Ordered ONE (09:02)
[2022-07-30] MEDS ORDERED: MIDAZOLAM INJ 2MG/2ML VIAL As Ordered ONE (09:50)
[2022-07-30] MEDS ORDERED: LIDOCAINE 2% 100MG/5ML SDV (FOR ANES.) As Ordered ONE (09:50)
[2022-07-30] MEDS ORDERED: ONDANSETRON 4MG 2ML VIAL As Ordered ONE (09:50)
[2022-07-30] MEDS ORDERED: propofoL 200 MG/20 ML VIAL As Ordered ONE (09:50)
[2022-07-30] MEDS ORDERED: fentaNYL 100 MCG/2 ML INJECTION As Ordered ONE (09:50)
[2022-07-30] MEDS ORDERED: SUCCINYLCHOLINE 100MG/5ML SYRINGE As Ordered ONE (09:51)
[2022-07-30] MEDS ORDERED: SUGAMMADEX SODIUM 500 MG/5 ML VIAL (BRIDION) As Ordered ONE (10:02)
[2022-07-30] MEDS ORDERED: KETOROLAC 60MG 2ML VIAL As Ordered ONE (10:02)
[2022-07-30] MEDS ORDERED: ONDANSETRON 4MG 2ML VIAL IV PRN (10:35)
[2022-07-30] MEDS ORDERED: LR 1,000 ML IV SCH ×2 (10:35)
[2022-07-30] MEDS: fentaNYL 100 MCG/2 ML INJECTION IV PRN ×4 (10:46→11:03)
[2022-07-30] MEDS ORDERED: PERC5TAB12 PO (10:48)
[2022-07-30] MEDS: oxyCODONE 5MG TAB PO PRN ×2 (10:54→11:28)
[2022-07-30] MEDS: HYDROMORPHONE HCL 0.5 MG/ 0.5 ML SYRINGE IV PRN ×4 (11:08→11:23)
[2022-07-30 11:43] VITALS: BP 124/79
== END 2022-07-30 13:12 | disposition home or self-care (01) ==
LOC: M SDC 07:17
PROVIDERS: ATTEND Orthopaedic Surgery Hand Surgery
DX: S52.571A Other intraarticular fracture of lower end of right radius, initial encounter for closed fracture (principal)
CPT/HCPCS: 25609; 36415; 76000; 80048; 93005; C1713; J0330; J0690; J1100; J1170; J1885; J2250; J2405; J2795; J3010

== ENCOUNTER → 2022-08-05 | Outpatient (CLI) | payer OTHER | LOC: M SOG 10:12 | PROVIDERS: ATTEND Orthopaedic Surgery Hand Surgery | DX: S52.571A Other intraarticular fracture of lower end of right radius, initial encounter for closed fracture (principal); X58.XXXA Exposure to other specified factors, initial encounter; Y92.9 Unspecified place or not applicable; Y93.9 Activity, unspecified; Y99.9 Unspecified external cause status ==

== ENCOUNTER → 2022-08-21 | Outpatient (CLI) | payer OTHER | LOC: M SOG 08:16 | PROVIDERS: ATTEND Physician Assistant | DX: S52.571D Other intraarticular fracture of lower end of right radius, subsequent encounter for closed fracture with routine healing (principal) ==

== ENCOUNTER → 2022-09-11 | Outpatient (CLI) | payer OTHER | LOC: M SOG 11:16 | PROVIDERS: ATTEND Physician Assistant | DX: M25.631 Stiffness of right wrist, not elsewhere classified (principal); S52.571D Other intraarticular fracture of lower end of right radius, subsequent encounter for closed fracture with routine healing ==

== ENCOUNTER → 2022-10-23 | Outpatient (CLI) | payer OTHER | LOC: M SOG 10:36 | PROVIDERS: ATTEND Physician Assistant | DX: S52.571D Other intraarticular fracture of lower end of right radius, subsequent encounter for closed fracture with routine healing (principal); M25.631 Stiffness of right wrist, not elsewhere classified ==

== ENCOUNTER → 2023-02-17 | Outpatient (CLI) | payer OTHER | LOC: M SOG 14:41 | PROVIDERS: ATTEND Orthopaedic Surgery Hand Surgery | DX: S52.571D Other intraarticular fracture of lower end of right radius, subsequent encounter for closed fracture with routine healing (principal) ==

== ENCOUNTER → 2023-05-07 | Outpatient (CLI) | payer OTHER | LOC: M SOG 08:26 | PROVIDERS: ATTEND Physician Assistant | DX: S52.571A Other intraarticular fracture of lower end of right radius, initial encounter for closed fracture (principal); Y93.9 Activity, unspecified; Y92.9 Unspecified place or not applicable ==

== ENCOUNTER 2023-08-03 06:29 | Day surgery (SDC) | payer OTHER ==
[~2023-08-03] VITALS: Ht 172.7 cm; Wt 167.2 kg
[~2023-08-03 06:29] MED LIST changes: +CALC600T61 PO; +DULO1CAP5 PO; -ERGO500029; +ERGO500029 PO; -FERR32TA; +FERR32TA PO; -LEVO50TA5; +LEVO50TA5 PO; +MULTTAB86 PO
[2023-08-03] MEDS ORDERED: LR 1,000 ML IV SCH ×2 (07:00→09:30)
[2023-08-03] MEDS: ceFAZolin SOD 2 GM in IV 1 EA IV ONE (08:05)
[2023-08-03] MEDS ORDERED: propofoL 200 MG/20 ML VIAL As Ordered ONE (08:12)
[2023-08-03] MEDS ORDERED: fentaNYL 250 MCG/5 ML INJECTION As Ordered ONE (08:12)
[2023-08-03] MEDS ORDERED: ROCURONIUM BROMIDE 50MG/5ML VIAL As Ordered ONE (08:12)
[2023-08-03] MEDS ORDERED: METOCLOPRAMIDE INJ 10MG/2ML VIAL As Ordered ONE (08:12)
[2023-08-03] MEDS ORDERED: ONDANSETRON 4MG 2ML VIAL As Ordered ONE (08:12)
[2023-08-03] MEDS ORDERED: MIDAZOLAM INJ 2MG/2ML VIAL As Ordered ONE (08:13)
[2023-08-03] MEDS: ceFAZolin 1GM VIAL As Ordered ONE (08:22)
[2023-08-03] MEDS: ceFAZolin 2 GM/D5W 50 ML IV BAG As Ordered ONE (08:22)
[2023-08-03] MEDS: ceFAZolin SOD 1 GM in D5W MINI-BAG PLUS 50 ML IV ONE (08:45)
[2023-08-03] MEDS ORDERED: SUGAMMADEX SODIUM 500 MG/5 ML VIAL (BRIDION) As Ordered ONE (09:04)
[2023-08-03] MEDS ORDERED: ACETAMINOPHEN 1000MG 100ML IV BAG As Ordered ONE (09:04)
[2023-08-03] MEDS: BACITRACIN OINTMENT 30GM TUBE As Ordered ONE (09:28)
[2023-08-03] MEDS ORDERED: fentaNYL 100 MCG/2 ML INJECTION IV PRN (09:30)
[2023-08-03] MEDS ORDERED: ONDANSETRON 4MG 2ML VIAL IV PRN (09:30)
[2023-08-03] MEDS ORDERED: PERC5TAB12 PO (09:57)
[2023-08-03] MEDS: oxyCODONE 5MG TAB PO PRN (10:07)
[2023-08-03] MEDS: HYDROMORPHONE HCL 0.5 MG/ 0.5 ML SYRINGE IV PRN (10:07)
[2023-08-03 11:39] VITALS: BP 136/82; TEMP 97.5; O2SAT 97
== END 2023-08-03 12:07 | disposition home or self-care (01) ==
LOC: M SDC 06:29
PROVIDERS: ATTEND Orthopaedic Surgery Hand Surgery
DX: T84.84XA Pain due to internal orthopedic prosthetic devices, implants and grafts, initial encounter (principal); Y79.2 Prosthetic and other implants, materials and accessory orthopedic devices associated with adverse incidents; I10 Essential (primary) hypertension; E03.9 Hypothyroidism, unspecified; G47.30 Sleep apnea, unspecified; Z79.890 Hormone replacement therapy; Z79.899 Other long term (current) drug therapy
CPT/HCPCS: 20680; 76000; J0131; J0665; J0690; J1100; J1170; J2250; J2405; J2765; J3010

== ENCOUNTER → 2023-08-12 | Outpatient (CLI) | payer OTHER | LOC: M SOG 14:10 | PROVIDERS: ATTEND Physician Assistant | DX: S52.571D Other intraarticular fracture of lower end of right radius, subsequent encounter for closed fracture with routine healing (principal); Y93.9 Activity, unspecified; Y92.9 Unspecified place or not applicable ==

== ENCOUNTER → 2023-09-09 | Outpatient (CLI) | payer OTHER | LOC: M SOG 13:40 | PROVIDERS: ATTEND Physician Assistant | DX: Z87.81 Personal history of (healed) traumatic fracture (principal); S52.611K Displaced fracture of right ulna styloid process, subsequent encounter for closed fracture with nonunion ==

== ENCOUNTER → 2023-12-18 | Outpatient (REF) | payer OTHER, MEDICAID ==
[2023-12-18 11:21] LABS: BASO % 0.3 % (0.0-1.0); EOS # 0.1 10^3/uL (0.0-0.5); HEMATOCRIT 46.6 % (42.0-52.0); LYMPH # 1.7 10^3/uL (1.5-5.0); LYMPH % 25.3 % (24.0-44.0); MEAN CORPUSCULAR HEMOGLOBIN 27.4 pg (27.0-33.0); MEAN CORPUSCULAR HGB CONC 32.2 g/dl (32.0-36.5); MONO # 0.5 10^3/uL (0.0-0.8); NEUTROPHILS # 4.5 10^3/uL (1.5-8.5); NEUTROPHILS % 66.1 % (36.0-66.0); PLATELET COUNT, AUTOMATED 421 10^3/uL (150-450); RED BLOOD COUNT 5.48 10^6/uL (4.30-6.10); WHITE BLOOD COUNT 6.8 10^3/uL (4.0-10.0)
[2023-12-18 11:52] LABS: HEMOGLOBIN A1c 5.5 % (4.0-6.0)
[2023-12-18 11:53] LABS: TOTAL 25(OH) VITAMIN D 10.1 NG/ML (20.0-100.0)
[2023-12-18 11:54] LABS: ALBUMIN 3.4 G/DL (3.2-5.2); ALKALINE PHOSPHATASE 87 U/L (46-116); ALT/SGPT 15 U/L (7.0-40); AST/SGOT 12 U/L (<34); BILIRUBIN,TOTAL 0.5 MG/DL (0.3-1.2); BLOOD UREA NITROGEN 8 MG/DL (9-23); CALCIUM LEVEL 8.3 MG/DL (8.5-10.1); CARBON DIOXIDE LEVEL 29 MMOL/L (20-31); CHLORIDE LEVEL 106 MMOL/L (98-107); CHOLESTEROL LEVEL 181 MG/DL (<200); CREATININE FOR GFR 0.77 MG/DL (0.70-1.30); FERRITIN 11.2 NG/ML (10.5-307.3); GLOMERULAR FILTRATION RATE > 60.0 (>60); GLUCOSE, FASTING 84 MG/DL (60-100); HDL CHOLESTEROL 45.2 MG/DL (>40); IRON (FE) 56 UG/DL (65-175); LDL CHOLESTEROL 120.2 MG/DL (<100); NON-HDL-C 135.8 MG/DL; PERCENT SATURATION 15.6 % (19.7-50.0); POTASSIUM SERUM 5.6 MMOL/L (3.5-5.1); SODIUM LEVEL 138 MMOL/L (136-145); THYROID STIMULATING HORMONE 2.676 uIU/ML (0.55-4.78); TOTAL IRON BINDING CAPACITY 358 UG/DL (250-425); TOTAL PROTEIN 6.6 G/DL (5.7-8.2); TRIGLYCERIDES LEVEL 78 MG/DL (<150)
[2023-12-18 11:55] LABS: FREE T4 1.15 NG/DL (0.89-1.76)
== END ==
LOC: M SFHCPLAZ 10:09
PROVIDERS: ATTEND Physician Assistant
DX: E55.9 Vitamin D deficiency, unspecified (principal); I10 Essential (primary) hypertension; D50.9 Iron deficiency anemia, unspecified; E03.9 Hypothyroidism, unspecified; E66.01 Morbid (severe) obesity due to excess calories

== ENCOUNTER → 2024-01-08 | Outpatient (CLI) | payer OTHER ==
[2024-01-08 14:25] LABS: BLOOD UREA NITROGEN 9 MG/DL (9-23); CARBON DIOXIDE LEVEL 27 MMOL/L (20-31); CHLORIDE LEVEL 106 MMOL/L (98-107); CREATININE FOR GFR 0.76 MG/DL (0.70-1.30); GLOMERULAR FILTRATION RATE > 60.0 (>60); GLUCOSE, FASTING 84 MG/DL (60-100); POTASSIUM SERUM 4.1 MMOL/L (3.5-5.1); SODIUM LEVEL 138 MMOL/L (136-145)
== END ==
LOC: M PLALAB 09:50
PROVIDERS: ATTEND Physician Assistant
DX: E87.5 Hyperkalemia (principal)

== ENCOUNTER → 2024-06-23 | Outpatient (CLI) | payer OTHER ==
[~2024-06-23] MED LIST changes: -MULT200T7 PO; +MULT200T9 PO
[2024-06-23 15:43] LABS: HEMATOCRIT 44.7 % (42.0-52.0); HEMOGLOBIN 14.9 g/dl (13.5-17.5); MEAN CORPUSCULAR HEMOGLOBIN 28.5 pg (27.0-33.0); MEAN CORPUSCULAR HGB CONC 33.3 g/dl (32.0-36.5); MEAN CORPUSCULAR VOLUME 85.5 fl (80.0-96.0); PLATELET COUNT, AUTOMATED 444 10^3/uL (150-450); RED BLOOD COUNT 5.23 10^6/uL (4.30-6.10); WHITE BLOOD COUNT 7.7 10^3/uL (4.0-10.0)
[2024-06-23 16:06] LABS: HEMOGLOBIN A1c 5.4 % (4.0-6.0); TOTAL IRON BINDING CAPACITY 312 UG/DL (250-425)
[2024-06-23 16:07] LABS: IRON (FE) 72 UG/DL (65-175); PERCENT SATURATION 23.1 % (19.7-50.0)
[2024-06-23 16:24] LABS: ALBUMIN 3.2 G/DL (3.2-5.2); ALKALINE PHOSPHATASE 81 U/L (40-129); ALT/SGPT 13 U/L (7.0-40); AST/SGOT 13 U/L (<34); BILIRUBIN,TOTAL 0.5 MG/DL (0.3-1.2); BLOOD UREA NITROGEN 9 MG/DL (9-23); CARBON DIOXIDE LEVEL 24 MMOL/L (20-31); CHLORIDE LEVEL 105 MMOL/L (98-107); CHOLESTEROL LEVEL 192 MG/DL (<200); CHOLESTEROL RISK RATIO 3.93 (<5); CREATININE FOR GFR 0.63 MG/DL (0.70-1.30); FREE T4 1.11 NG/DL (0.89-1.76); GLOMERULAR FILTRATION RATE > 60.0 (>60); GLUCOSE, FASTING 84 MG/DL (60-100); HDL CHOLESTEROL 48.8 MG/DL (>40); LDL CHOLESTEROL 123.6 MG/DL (<100); NON-HDL-C 143.2 MG/DL; POTASSIUM SERUM 4.5 MMOL/L (3.5-5.1); SODIUM LEVEL 138 MMOL/L (136-145); THYROID STIMULATING HORMONE 2.617 uIU/ML (0.55-4.78); TOTAL PROTEIN 6.5 G/DL (5.7-8.2); TRIGLYCERIDES LEVEL 98 MG/DL (<150)
== END ==
LOC: M PLALAB 13:40
PROVIDERS: ATTEND Nurse Practitioner Family
DX: E03.9 Hypothyroidism, unspecified (principal)

== ENCOUNTER 2024-08-08 09:10 | Day surgery (SDC) | payer OTHER ==
[~2024-08-08] VITALS: Ht 172.7 cm; Wt 163.6 kg
[~2024-08-08 09:10] MED LIST changes: +ESTR20VI2 SC; +GLYCOPYRROLATE INJ 0.2 MG/ML 2 ML VIAL As Ordered ONE; +LIDOCAINE 2% 100MG/5ML SDV (FOR ANES.) As Ordered ONE; +MIDAZOLAM INJ 2MG/2ML VIAL As Ordered ONE; +ONDANSETRON 4MG 2ML VIAL As Ordered ONE; +ROCURONIUM BROMIDE 50MG/5ML VIAL As Ordered ONE; +SPIR50TA4 PO; +SUGAMMADEX SODIUM 500 MG/5 ML VIAL (BRIDION) As Ordered ONE; +fentaNYL 100 MCG/2 ML INJECTION As Ordered ONE; +propofoL 200 MG/20 ML VIAL As Ordered ONE
[2024-08-08] MEDS ORDERED: LR 1,000 ML IV SCH (09:50)
[2024-08-08] MEDS: AMPICILLIN SOD/SULBACTAM SOD 3 GM in D5W MINI-BAG 100 ML IV ONE (11:28)
[2024-08-08] MEDS: LIDOCAINE 2% W/ EPINEPHRINE 1.7 ML DENTAL INJ As Ordered ONE (11:33)
[2024-08-08] MEDS: CHLORHEXIDINE GLUCONATE 0.12 % 15ML UDC (PERIDEX ORAL RINSE) As Ordered ONE (12:00)
[2024-08-08] MEDS: BUPivacaine LIPOSOME/PF 266MG 20ML VIAL (13.3MG/ML)(EXPAREL) As Ordered ONE (12:14)
[2024-08-08] MEDS ORDERED: MORPHINE 2 MG/ML 1ML VIAL IV PRN (12:20)
[2024-08-08] MEDS ORDERED: oxyCODONE 5MG TAB PO PRN (12:20)
[2024-08-08] MEDS ORDERED: ONDANSETRON 4MG 2ML VIAL IV PRN (12:20)
[2024-08-08] MEDS: fentaNYL 100 MCG/2 ML INJECTION IV PRN (12:34)
[2024-08-08 13:24] VITALS: BP 154/103; TEMP 97.2; O2SAT 94
== END 2024-08-08 14:13 | disposition home or self-care (01) ==
LOC: M SDC 09:10
PROVIDERS: ATTEND Dentist
DX: K02.9 Dental caries, unspecified (principal); I10 Essential (primary) hypertension; E03.9 Hypothyroidism, unspecified; F41.9 Anxiety disorder, unspecified; F32.A Depression, unspecified; G47.33 Obstructive sleep apnea (adult) (pediatric); Z79.899 Other long term (current) drug therapy
CPT/HCPCS: 88300; D7140; D7210; D7310; D9223; J0295; J0666; J1100; J1596; J2250; J2405; J3010

== ENCOUNTER → 2025-03-23 | Outpatient (REF) | payer MEDICAID, OTHER ==
[~2025-03-23] MED LIST changes: -GLYCOPYRROLATE INJ 0.2 MG/ML 2 ML VIAL As Ordered ONE; -LIDOCAINE 2% 100MG/5ML SDV (FOR ANES.) As Ordered ONE; -MIDAZOLAM INJ 2MG/2ML VIAL As Ordered ONE; -ONDANSETRON 4MG 2ML VIAL As Ordered ONE; -ROCURONIUM BROMIDE 50MG/5ML VIAL As Ordered ONE; -SUGAMMADEX SODIUM 500 MG/5 ML VIAL (BRIDION) As Ordered ONE; -fentaNYL 100 MCG/2 ML INJECTION As Ordered ONE; -propofoL 200 MG/20 ML VIAL As Ordered ONE
[2025-03-23 15:30] LABS: APPEARANCE, URINE HAZY (CLEAR); BACTERIA, URINE AUTO NEGATIVE (NEGATIVE); BILIRUBIN, URINE AUTO NEGATIVE (NEGATIVE); BLOOD, URINE BLOOD NEGATIVE (NEGATIVE); GLUCOSE, URINE (UA) AUTO NEGATIVE (NEGATIVE); KETONE, URINE AUTO NEGATIVE (NEGATIVE); LEUKOCYTE ESTERASE, URINE AUTO NEGATIVE (NEGATIVE); MUCUS, URINE SMALL (NEGATIVE); NITRITE, URINE AUTO NEGATIVE (NEGATIVE); PROTEIN, URINE AUTO NEGATIVE (NEGATIVE); RBC, URINE AUTO 1 /HPF (0-3); SPECIFIC GRAVITY URINE AUTO 1.025 (1.002-1.035); SQUAMOUS EPITHELIAL CELL UR AU 3 /HPF (0-6); UROBILINOGEN, URINE AUTO 2.0 mg/dL (0.0-2.0); WBC, URINE AUTO 2 /HPF (0-3)
== END ==
LOC: M SFHCPLAZ 15:09
PROVIDERS: ATTEND Physician Assistant Medical
DX: R33.9 Retention of urine, unspecified (principal)